=== PATIENT | male | born 1985 | race Hispanic/Latino ===

== ENCOUNTER 2022-02-28 15:49 | Emergency (ER) | payer OTHER ==
[2022-02-28 16:09] LABS: Absolute Lymphocytes (CBC) 1.8 K/uL (0.7-4.9); Hematocrit 43.9 % (39.6-49.0); Lymphocytes % 13.1 % (15.3-44.8); MCV 93.4 fL (80-100); MPV 7.9 fL (7.6-11.3)
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
--- NOTE | 2022-02-28 16:25 | RAD REPORT ---
EXAM DESCRIPTION: RAD - Femur Left - 02/28/2022 4:04 pm CLINICAL HISTORY: PAIN COMPARISON: No comparisons FINDINGS: No acute fracture or dislocation seen.
[2022-02-28 16:28] LABS: Potassium 3.9 mmol/L (3.5-5.1)
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
[2022-02-28] MEDS ORDERED: MORPHINE 4 MG/ML SYR ONE (17:33)
[2022-02-28 19:00] VITALS: TEMP 98.1
[2022-02-28 19:02] VITALS: BP 121/80; O2SAT 99
== END 2022-02-28 18:44 | disposition home or self-care (01) ==
LOC: ER 15:49
DX: S20.212A Contusion of left front wall of thorax, initial encounter (principal); S70.02XA Contusion of left hip, initial encounter; Z28.310 Unvaccinated for COVID-19
CPT/HCPCS: 85025; 80048; 36415; 82565; 70450; 72125; 71260; 74177; 73552; 96374; 99284; Q9967